=== PATIENT | male | born 1940 | race Caucasian/White ===

== ENCOUNTER 2016-11-06 13:31 | Emergency (ER) | payer OTHER, MEDICARE ==
[2016-11-06 14:22] VITALS: BP 148/76; PULSE 90; TEMP 97.4; BMI 32.8
[2016-11-06] MEDS ORDERED: LIDO 2%/EPI 1:200000 PRESRVFRE (20 ML SDVIAL) INF ONE (14:24)
[2016-11-06] MEDS ORDERED: LIDO 2%/EPI 1:200000 PRESRVFRE (20 ML SDVIAL) ONE (14:25)
[2016-11-06] MEDS ORDERED: DIPHTH,PERTUSS(ACELL),TET 0.5 ML DISP.SYRIN IM ONE (14:26)
--- NOTE | 2016-11-06 14:29 | PDOC ---
History of Present Illness - General History Source: Patient, Family, Spouse, Old Records Exam Limitations: No Limitations - History of Present Illness Initial Comments: 11/06/16 14:39 The patient is a 76 year old male, accompanied by , with a past medical history HTN who presents to the emergency department today s/p witnessed mechanical fall. The patient was at the gas station and was going inside to pay when his foot was caught on the curb and he landed on his left knee and right hand. The patient notes that he hit the left temporal region of his head but denies any loss of consciousness. The patient reports laceration of the left head and abrasions of the right hand and left knee. The patient notes that he recently underwent a basal cell removal 3 days ago (1 on the right medial leg and 1 on the left ateral leg. The patient notes that he does not take any daily blood thinners. He denies fever, headache, and vision changes. He denies vomiting, dizziness, and dysuria. He denies chest pain, difficulty breathing, and cough. <Cezar Sampson - Last Filed: 11/06/16 16:34> <Nik Rinaldi - Last Filed: 11/06/16 16:57> - General Chief Complaint: Injury Stated Complaint: FELL & STRUCK HEAD & LEFT KNEE Time Seen by Provider: 11/06/16 13:48 Past History <Cezar Sampson - Last Filed: 11/06/16 16:34> - Past Medical History HTN: Yes Other medical history: BASAL CELL CARCINOMA - Psycho/Social/Smoking Cessation Hx Anxiety: No Suicidal Ideation: No Smoking History: Never smoked Hx Alcohol Use: No Drug/Substance Use Hx: No Substance Use Type: None <Nik Rinaldi - Last Filed: 11/06/16 16:57> - Past Medical History Allergies/Adverse Reactions: Allergies Allergy/AdvReac Type Severity Reaction Status Date / Time aspirin AdvReac Verified 11/06/16 13:34 ibuprofen AdvReac Verified 11/06/16 13:34 Home Medications: Ambulatory Orders Amlodipine Besylate [Norvasc -] 5 mg PO DAILY 11/06/16 Atenolol [Tenormin -] 100 mg PO DAILY 11/06/16 Cephalexin [Keflex] 500 mg PO TID #21 capsule 11/06/16 Cholecalciferol (Vitamin D3) [Vitamin D3 -] 1,000 unit PO DAILY 11/06/16 Finasteride [Proscar] 5 mg PO DAILY 11/06/16 Fluocinonide ASDIR 11/06/16 Hydrocortisone 2.5% Topical Cr 11/06/16 Ketoconazole 2% Cream [Nizoral 2% Cream -] 1 applic TP DAILY 11/06/16 Lisinopril [Zestril] 40 mg PO DAILY 11/06/16 Magnesium Chloride [Slow-Mag -] 71.5 mg PO Q48H 11/06/16 Tamsulosin HCl [Flomax] 0.4 mg PO DAILY 11/06/16 Vitamin B Complex 1 each PO Q48H 11/06/16 Review of Systems - Review of Systems Able to Perform ROS?: Yes Comments:: 11/06/16 14:39 CONSTITUTIONAL: Absent: Fever, Chills, Diaphoresis, Generalized Weakness, Malaise, Loss of Appetite HEENT: Absent: Rhinorrhea, Nasal Congestion, Throat Pain, Throat Swelling, Difficulty Swallowing, Mouth Swelling, Ear Pain, Eye Pain, Visual Changes CARDIOVASCULAR: Absent: Chest Pain, Syncope, Palpitations, Irregular Heart Rate, Lightheadedness , Peripheral Edema RESPIRATORY: Absent: Cough, Shortness of Breath, SOB with Exertion, Orthopnea, Wheezing, Stridor, Hemoptysis GASTROINTESTINAL: Absent: Abdominal pain, Abdominal Distension, Nausea, Vomiting, Diarrhea, Constipation, Melena, Hematochezia GENITOURINARY: Absent: Dysuria, Frequency, Urgency, Hesitancy, Flank Pain, Genital Pain MUSCULOSKELETAL: Present: Left knee abrasion, right hand abrasion. Left temporal laceration. Absent: Myalgia, Arthralgia, Joint Swelling, Back pain, Neck Pain SKIN: Absent: Rash, Itching, PalloR HEMEATOLOGIC/IMMUNOLOGIC: Absent: Easy Bleeding, Easy Bruising, Lymphadenopathy, Frequent infections ENDOCRINE: Absent: Unexplained Weight Gain, Unexplained Weight Loss, Heat Intolerance, Cold Intolerance NEUROLOGIC: Absent: Headache, Focal Weakness, Paresthesias, Vertigo, Lightheadedness, Unsteady Gait, Seizure, Mental Status Changes, Incontinence PSYCHIATRIC: Absent: Anxiety, Depression <Cezar Sampson - Last Filed: 11/06/16 16:34> *Physical Exam - Vital Signs Last Vital Signs Temp Pulse Resp BP Pulse Ox 97.4 F L 90 16 148/76 96 11/06/16 13:32 11/06/16 13:32 11/06/16 13:32 11/06/16 13:32 11/06/16 13:32 - Physical Exam Comments: 11/06/16 14:40 GENERAL: The patient is awake, alert, and fully oriented, in no acute distress. HEAD: (+) Stellate laceration to left lateral brow EYES: Pupils equal, round and reactive to light, extraocular movements intact, sclera anicteric, conjunctiva clear. ENT: (+) Ears normal, nares patent, oropharynx clear without exudates. Moist mucous membranes. Abrasion to left nose, lip, and cheek. NECK: Normal range of motion, supple without lymphadenopathy, JVD, or masses. LUNGS: Breath sounds equal, clear to auscultation bilaterally. No wheezes, and no crackles. HEART: Regular rate and rhythm, normal S1 and S2 without murmur, rub or gallop. ABDOMEN: Soft, nontender, normoactive bowel sounds. No guarding, no rebound. No masses. EXTREMITIES: (+) No edema. No clubbing or cyanosis. No cords, erythema, or tenderness. Abrasion to left medial knee and right palmar region. Normal range of motion without pain of left knee and right hand. Normal range of motion of all other extremities. NEUROLOGICAL: Cranial nerves II through XII grossly intact. Normal speech, normal gait. PSYCH: Normal mood, normal affect. SKIN: Warm, Dry, normal turgor, no rashes or lesions noted. <Cezar Sampson - Last Filed: 11/06/16 16:34> - Vital Signs Last Vital Signs Temp Pulse Resp BP Pulse Ox 97.4 F L 90 16 148/76 96 11/06/16 13:32 11/06/16 13:32 11/06/16 13:32 11/06/16 13:32 11/06/16 13:32 <Nik Rinaldi - Last Filed: 11/06/16 16:57> ED Treatment Course - RADIOLOGY Radiograph Interpretation: 11/06/16 15:45 EXAM#: TYPE/EXAM: RESULT: [id number] CT/HEAD CT WITHOUT CONTRAST Status post head trauma CT scan of the brain without intravenous contrast. There is moderate volume loss and ventricular dilatation. Minimal periventricular chronic microvascular ischemic changes are present. No mass lesion, gross acute infarct or intracranial hemorrhage is identified. There is no shift of the midline structures. The calvarium is intact. Visualized paranasal sinuses and mastoid air cells are well aerated. IMPRESSION: Moderate volume loss without evidence of acute intracranial pathology. Reported By: Zackary Macias MD 11/06/16 1522 - Medications Given in the ED: ED Medications Discontinued Medications Generic Name Dose Route Start Last Admin Trade Name Freq PRN Reason Stop Dose Admin Diphtheria/Tetanus/Acell Pertussis 0.5 ml 11/06/16 14:26 11/06/16 14:30 Boostrix - IM 11/06/16 14:27 0.5 ml .ONCE ONE Administration <Cezar Sampson - Last Filed: 11/06/16 16:34> - RADIOLOGY Radiology Studies Ordered: Category Date Time Status HEAD CT WITHOUT CONTRAST [CT] Stat CT Scan 11/06/16 14:27 Ordered <Nik Rinaldi - Last Filed: 11/06/16 16:57> Medical Decision Making - Medical Decision Making 11/06/16 16:35 The skin was prepped with Saline. 2% lidocaine with epi was injected subcutaneously for local anesthesia. Normal saline lavage, high pressure, high volume was performed. 4 - 0 Nylon, simple interrupted sutures, x 7 were placed. Bacitracin and dry sterile dressing were applied. Patient was advised regarding signs and symptoms of infection that would indicate a need to see the doctor immediately, as well as instructions for suture removal. <Cezar Sampson - Last Filed: 11/06/16 16:34> - Medical Decision Making 11/06/16 16:49 Elderly gentleman presents after a trip over a curb with a mechanical fall. He hit the left side of his head as well as his left knee and his right hand. There was no loss of consciousness. He got up with assistance and pain for his gas and then drove home. He has a laceration from his glasses to the left hindu. On examination, there is a stellate laceration of the left hindu. The wound was repaired under supervision by Dr. Elda Trejo, the resident. Other injuries include an abrasion on the right hand as well as a left knee superficial abrasion. There is no bony tenderness of the left knee. The patient is ambulatory. His range of motion of the left knee is mildly reduced, but this is chronic from arthritis and he is awaiting a left knee replacement. Her logical examination is normal. CT of the head shows no acute changes. Laceration has been repaired. Patient had a recent basal cell carcinoma removed from his right medial lower leg. There is slight redness around the area. I will prescribe him Keflex for prophylaxis for the scalp laceration as well as for possible mild early cellulitis in the area of the basal cell carcinoma procedure in the right leg. He already has scheduled follow-up with his doctor in 3 days. <Nik Rinaldi - Last Filed: 11/06/16 16:57> *DC/Admit/Observation/Transfer - Attestations Scribe Attestion: 11/06/16 14:40 Documentation prepared by Cezar Sampson, acting as biomedical field service engineer for Nik Rinaldi MD. <Cezar Sampson - Last Filed: 11/06/16 16:34> - Discharge Dispostion Admit: No <Nik Rinaldi - Last Filed: 11/06/16 16:57> Diagnosis at time of Disposition: Head trauma Qualifiers: Encounter type: initial encounter Qualified Code(s): S09.90XA - Unspecified injury of head, initial encounter Facial laceration Qualifiers: Encounter type: initial encounter Qualified Code(s): S01.81XA - Laceration without foreign body of other part of head, initial encounter - Discharge Dispostion Disposition: HOME Condition at time of disposition: Good - Prescriptions Prescriptions: Cephalexin [Keflex] 500 mg PO TID #21 capsule - Referrals Referrals: Kimberly Gleason MD [Primary Care Provider] - 3 days - Patient Instructions Printed Discharge Instructions: DI for Laceration Repair -- Simple, DI for Closed Head Injury Additional Instructions: You were evaluated today for a head injury as well as for a laceration of the left hindu. The stitches need to come out in 5 or 6 days. You may come to the emergency department or see your primary care physician for removal. Take Keflex antibiotic to prevent wound infection at the left hindu and also to treat the redness around the right lower leg basal cell carcinoma wound. Elevate the leg. Watch for any progression of the redness. Watch for fever. Take Tylenol as needed for pain. Follow-up with your primary care physician in 3 days as scheduled. Follow-up in 5-6 days for suture removal as recommended. Return to the emergency department for any signs of progression or fever.
== END 2016-11-06 17:13 | disposition home or self-care (01) ==
LOC: FER 13:31 → EDBD 13:31 → FER 17:13
PROC: 0HQ1XZZ Repair Face Skin, External Approach (ICD-10-PCS; principal; 2016-11-06)
DX: S01.81XA Laceration without foreign body of other part of head, initial encounter (principal); S09.90XA Unspecified injury of head, initial encounter; W18.39XA Other fall on same level, initial encounter; Y93.89 Activity, other specified; Y92.524 Gas station as the place of occurrence of the external cause; I10 Essential (primary) hypertension; Z85.828 Personal history of other malignant neoplasm of skin
CPT/HCPCS: 12001-25; 70450-TC; 90715; 99282-25

== ENCOUNTER 2016-11-11 10:21 | Emergency (ER) | payer OTHER, MEDICARE ==
[2016-11-11 10:24] VITALS: BP 146/69; PULSE 66; TEMP 97.7; BMI 32.5
--- NOTE | 2016-11-11 10:39 | PDOC ---
Suture Removal/Wound Check HPI - History of Present Illness Chief Complaint: Suture/Staple Removal(Here) Stated Complaint: suture removal Time Seen by Provider: 11/11/16 10:31 History Source: Yes: Patient Exam Limitations: Yes: No Limitations Treated at: [facility] Date of Last ED visit: 11/06/16 - Previous ED Treatment Type of procedure performed on last visit: Yes: Laceration Repair Tetanus Immunization: Yes: Up to Date Antibiotics Prescribed: No - Onset of Previous Treatment Date of Occurence: 11/06/16 Comment:: 11/11/16 10:35 76-year-old man status post mechanical fall 5 days ago striking his left eyebrow region with resultant laceration that was sutured in the emergency department. The patient presents to the emergency department today for suture removal. He denies any fevers, chills, visual changes, purulent drainage or erythema to the wound. He denies any headaches or dizziness. Past History - Past Medical History Allergies/Adverse Reactions: Allergies aspirin Adverse Reaction (Verified 11/11/16 10:22) BLEEDING ULCER ibuprofen Adverse Reaction (Verified 11/11/16 10:22) A APRECAUTION TO PREVENT GASTRIC ULCER BLEEDING Home Medications: Ambulatory Orders Amlodipine Besylate [Norvasc -] 5 mg PO DAILY 11/06/16 Atenolol [Tenormin -] 100 mg PO DAILY 11/06/16 Cephalexin [Keflex] 500 mg PO TID #21 capsule 11/06/16 Cholecalciferol (Vitamin D3) [Vitamin D3 -] 1,000 unit PO DAILY 11/06/16 Finasteride [Proscar] 5 mg PO DAILY 11/06/16 Fluocinonide ASDIR 11/06/16 Hydrocortisone 2.5% Topical Cr 11/06/16 Ketoconazole 2% Cream [Nizoral 2% Cream -] 1 applic TP DAILY 11/06/16 Lisinopril [Zestril] 40 mg PO DAILY 11/06/16 Magnesium Chloride [Slow-Mag -] 71.5 mg PO Q48H 11/06/16 Tamsulosin HCl [Flomax] 0.4 mg PO DAILY 11/06/16 Vitamin B Complex 1 each PO Q48H 11/06/16 - Immunization History Tetanus Status: More than 5 years - Social History Smoking Status: Never smoked Suture Removal/Wound Check PE - Physical Exam Laceration/Wound Check Symptoms: reports: None Current Severity Level: None Maximum Severity Level: None Location of Laceration/Wound: left: Face (eyebrow region region contains an irregularly shaped lacewration that is healing well and is well approximated. There is no purulent drainage or erythema surroundiong the wound.) Pain Radiation: None *Review of Systems - Review of Systems Able to Perform ROS?: Yes Constitutional: No: Symptoms Reported HEENTM: No: Symptoms Reported Respiratory: No: Symptoms reported Cardiac (ROS): No: Symptoms Reported Integumentary: No: Symptoms Reported Neurological: No: Symptoms reported Medical Decision Making - Medical Decision Making 11/11/16 10:37 76-year-old male status post mechanical fall 5 days ago with laceration here today for suture removal. The sutures were removed without complication and the wound is well-healed without any signs of infection. Discharge instructions and wound care were discussed with the patient. The patient was advised to follow- up with his primary care physician and return to the emergency department if the wound shows signs of infection. *DC/Admit/Observation/Transfer Diagnosis at time of Disposition: Encounter for removal of sutures - Discharge Dispostion Disposition: HOME Condition at time of disposition: Stable Admit: No - Patient Instructions Printed Discharge Instructions: DI for Suture Removal Additional Instructions: Sutures have been removed today. You may decrease the amount of scarring by staying out of the sun or if you need to be in the sun with a baseball. He may also apply vitamin E oil once the wound is completely healed. Please continue to look for redness or purulent drainage from the wound as these are signs of infection and would necessitate you to return to the emergency department. He may take Tylenol as needed for pain. Please follow-up with your primary care physician and return to the emergency department as needed.
== END 2016-11-11 11:13 | disposition home or self-care (01) ==
LOC: FER 10:21
DX: Z48.02 Encounter for removal of sutures (principal)
CPT/HCPCS: 99282-25